=== PATIENT | female | born 1990 | race Caucasian/White ===

== ENCOUNTER 2016-12-11 00:07 | Emergency (ER) | payer SELFPAY ==
[~2016-12-11] VITALS: Ht 177.8 cm; Wt 63.5 kg
[2016-12-11] MEDS ORDERED: ONDANSETRON 4 MG/2 ML VIAL IV ONE ×2 (00:30→04:30)
[2016-12-11] MEDS ORDERED: IV NORMAL SALINE 1000 ML BAG IV ONE ×2 (00:30→01:45)
[2016-12-11] MEDS ORDERED: MORPHINE SULFATE 2 MG/1 ML DISP.SYRIN IV ONE (00:30)
--- NOTE | 2016-12-11 00:42 | NUR ---
Pt biba from [facility] for c/o severe sharp abd pain radiating to right shoulder. Pt had a procedure done yesterday morning to harvest her eggs ([employer]) and later developed abd pain. Per EMS pt initially was hypotensive, IV establish and fluid bolus started bar captain. VS WNL at triage. Pt seen by Dr. Alegre. Labs drawn and sent. Pt medicated for pain, will monitor for effects of medication. Fluid bolus infusing freely to gravity. Pt resting in position of comfort for self.
[2016-12-11] MEDS ORDERED: ONDANSETRON 4 MG/2 ML VIAL ONE ×2 (00:45→04:36)
[2016-12-11] MEDS ORDERED: MORPHINE SULFATE 2 MG/1 ML DISP.SYRIN ONE (00:46)
[2016-12-11] MEDS ORDERED: MORPHINE SULFATE 4 MG/1 ML DISP.SYRIN IV ONE (01:00)
--- NOTE | 2016-12-11 01:00 | NUR ---
Pt cont to c/o severe pain, facial grimacing and guarding noted. Dr. Alegre notified and pt medicated,, will monitor for effects of medication.
[2016-12-11 01:06] LABS: CREATININE 0.7 mg/dL (0.6-1.3); POTASSIUM 3.8 mmol/L (3.5-5.1)
[2016-12-11 01:08] LABS: BASOPHILS % (AUTO) 0.3 % (0.0-2.0); EOSINOPHILS # (AUTO) 0.2 K/uL (0.0-0.7); EOSINOPHILS % (AUTO) 1.4 % (0.0-7.0); HEMATOCRIT 28.4 % (37-47); HEMOGLOBIN 9.5 G/DL (12.0-16.0); LYMPHOCYTES # (AUTO) 1.1 K/UL (0.8-4.8); LYMPHOCYTES % (AUTO) 9.7 % (20.5-51.5); MEAN CORPUSCULAR HEMOGLOBIN 30.2 UUG (27.0-31.0); MEAN CORPUSCULAR HGB CONC 33 g/dL (32.0-37.0); MEAN CORPUSCULAR VOLUME 90.6 FL (81.0-99.0); MONOCYTES # (AUTO) 0.5 K/UL (0.1-1.30); MONOCYTES % (AUTO) 4.2 % (0.0-11.0); NEUTROPHILS # (AUTO) 9.9 K/UL (1.8-8.9); NEUTROPHILS % (AUTO) 84.4 % (38.5-71.5); PLATELET COUNT (AUTO) 211 K/UL (150-450); RED BLOOD CELL COUNT(AUTO) 3.13 MIL/UL (4.2-5.4); WHITE BLOOD COUNT (AUTO) 11.7 K/UL (4.0-11.2)
[2016-12-11 01:11] LABS: BILIRUBIN,DIRECT 0.1 mg/dL (0.0-0.2); BILIRUBIN,TOTAL 0.3 mg/dL (0.2-1.0); TOTAL PROTEIN, SERUM 5.1 g/dL (6.4-8.2)
[2016-12-11] MEDS ORDERED: MORPHINE SULFATE 4 MG/1 ML DISP.SYRIN ONE (01:13)
--- NOTE | 2016-12-11 01:30 | NUR ---
Pt sts pain improved and is tolerable at this time. Facial grimacing and crying no longer noted. Pt resting in position of comfort for self
--- NOTE | 2016-12-11 01:51 | NUR ---
First fluid bolus completed. Second fluid bolus started. Pt sts pain is starting to increase again. Dr. Alegre notified, awaiting further orders.
[2016-12-11] MEDS ORDERED: HYDROMORPHONE 1 MG/1 ML DISP.SYRIN IV ONE ×3 (02:00→05:30)
--- NOTE | 2016-12-11 02:03 | NUR ---
Pt medicated for discomfort, will monitor for effects of medication
[2016-12-11] MEDS ORDERED: HYDROMORPHONE 2 MG/1 ML DISP.SYRIN ONE ×3 (02:07→05:32)
--- NOTE | 2016-12-11 03:01 | NUR ---
Pt resting in position of comfort for self. No complaints at this time. Second fluid bolus completed. Repeat lab work drawn and sent.
[2016-12-11 03:24] LABS: HEMATOCRIT 25.5 % (37-47); HEMOGLOBIN 8.5 G/DL (12.0-16.0)
--- NOTE | 2016-12-11 03:50 | NUR ---
Pt to CT via [facility]
[2016-12-11] MEDS ORDERED: IOHEXOL 300MG/ML 100 ML INFUS..BTL ONE (04:00)
[2016-12-11] MEDS ORDERED: IV NORMAL SALINE 250 ML IV ONE (04:00)
--- NOTE | 2016-12-11 04:15 | NUR ---
Pt returned from [place] via [facility]. Pt c/o pain increasing again. Dr. Alegre notified, awaiting further orders.
--- NOTE | 2016-12-11 05:04 | NUR ---
Dr. Alegre spoke with Dr. Gloria, who did the pt's procedure yesterday, and pt to be transfered to [facility] with Dr. Gloria accepting.
--- NOTE | 2016-12-11 05:10 | NUR ---
Called [facility] and was curtly informed they will not accept the pt without insurance information.
--- NOTE | 2016-12-11 05:20 | NUR ---
Zoey, transmitter engineer in charge called [facility] concerning transfering this pt. Informed them that this is considered "higher level of care". Nurse covering transfer center rudely refused pt and unprofessionally argued that this is not "higher level of care" but a lateral transfer.
--- NOTE | 2016-12-11 05:25 | NUR ---
Pt c/o pain increasing, Dr. Alegre notified and pt medicated. Will monitor for effects of medication. Pt reposition for comfort.
--- NOTE | 2016-12-11 05:25 | NUR ---
Brittaney, Plastics Engineer notified of dilemma
--- NOTE | 2016-12-11 05:30 | NUR ---
Dr. Alegre spoke Dr. Gloria and informed him of [facility] refusing the patient. Dr. Gloria to call [facility] and then call back.
--- NOTE | 2016-12-11 05:45 | NUR ---
Dr. Gloria called to say he is waiting a call back from [facility] administration is being called for admission
--- NOTE | 2016-12-11 05:50 | NUR ---
[facility] Shrest[facility] Reach Lift Truck Driver called and pt is accepted, will call back with room assignment.
[2016-12-11] MEDS ORDERED: IV D5 1/2 NS 1000 ML 1,000 ML IV ONE (06:00)
--- NOTE | 2016-12-11 06:00 | NUR ---
Pt resting in position of comfort for self with eyes closed. Resp even and unlabored. No obvious signs of distress. NSR on monitor
--- NOTE | 2016-12-11 06:10 | NUR ---
Henrietta from [facility] called and was informed pt will be going to room 301 and report to be called to [phone]
--- NOTE | 2016-12-11 06:25 | NUR ---
Brittaney, instrument assembly supervisor called and was informed that [facility] approved hospital to pay for ambulance transfer.
[2016-12-11 07:10] LABS: BASOPHILS % (AUTO) 0.2 % (0.0-2.0); EOSINOPHILS % (AUTO) 0.4 % (0.0-7.0); HEMATOCRIT 25.7 % (37-47); HEMOGLOBIN 8.4 G/DL (12.0-16.0); LYMPHOCYTES % (AUTO) 9.9 % (20.5-51.5); MEAN CORPUSCULAR HEMOGLOBIN 29.8 UUG (27.0-31.0); MEAN CORPUSCULAR HGB CONC 33 g/dL (32.0-37.0); MEAN CORPUSCULAR VOLUME 91.4 FL (81.0-99.0); MONOCYTES # (AUTO) 0.5 K/UL (0.1-1.30); MONOCYTES % (AUTO) 4.9 % (0.0-11.0); NEUTROPHILS # (AUTO) 8.3 K/UL (1.8-8.9); NEUTROPHILS % (AUTO) 84.6 % (38.5-71.5); PLATELET COUNT (AUTO) 216 K/UL (150-450); WHITE BLOOD COUNT (AUTO) 9.8 K/UL (4.0-11.2)
[2016-12-11 07:14] LABS: RED BLOOD CELL COUNT(AUTO) 2.81 MIL/UL (4.2-5.4)
--- NOTE | 2016-12-11 07:30 | NUR ---
Report given to BILL Dale. I relinquish care of pt at this time.
--- NOTE | 2016-12-11 07:40 | NUR ---
Build And Deployment Engineer assumes care. Patient is resting comfortably on gurney with eyes closed. PATIENT'S PAIN IS CONTROLLED AT THIS TIME. Patient is waiting for the [facility] ambulance SEE=[id number] per RN Stephie.
--- NOTE | 2016-12-11 07:40 | NUR ---
Bright fuentes in ED - 12/11/16 at 0751 by ALICIA Ball Mill Mixer assumes care- Patient is resting comfortably on gurney with eyes closed. PATIENT IS PAIN FREE AT THIS TIME. Patient is waiting for S ambulance TTP=[id number].
--- NOTE | 2016-12-11 08:14 | NUR ---
Patient tranfers to outside Facility: [facility] room 301 Physician: Osiel Location: room 301 RN: Poncho of [facility] accepted report ACLS ambulance: [facility] unit #[id number] senior process engineer Anibal accepted report
== END 2016-12-11 08:18 | disposition short-term general hospital (02) ==
LOC: ER 00:07
DX: K66.1 Hemoperitoneum (principal); D64.9 Anemia, unspecified; Z52.819 Egg (Oocyte) donor, unspecified
CPT/HCPCS: 36415; 71010; 74177; 80048; 80076; 84703; 85018; 85025 ×2; 85730; 86850; 86900; 86901; 96361; 96374; 96375; 96376; 99291; A4663; J1170 ×3; J2270 ×2; J2405 ×2; J3490; J7030 ×2; J7050; Q9967